=== PATIENT | female | born 1940 ===

== ENCOUNTER 2017-08-09 13:15 | Outpatient (CLI) | payer MEDICARE ==
--- NOTE | 2017-08-11 15:49 | Mammography Report ---
DIGITAL SCREENING MAMMOGRAM: 08/09/2017 COMPARISON: 11/11/2015, 11/06/2014, 10/09/2013, 10/23/2010, 09/19/2009. TECHNIQUE: Bilateral digital CC and MLO projections. FINDINGS: There are scattered fibroglandular densities. Scattered benign-appearing calcifications a re also present. There is no dominant mass, architectural distortion, skin thickening, or suspicious new microcalcifications. IMPRESSION: NEGATIVE. BIRADS CATEGORY: 1, NEGATIVE. SUGGEST RETURN TO ROUTINE SCREENING IN 12 MONTHS. STANDARD QUALIFYING STATEMENTS 1. This examination was reviewed with the aid of Computed-Aided Detection (CAD). 2. A negative or benign imaging report should not delay biopsy if clinically suspicious findings are present. Consider surgical consultation if warranted. More than 5% of cancers are not identified b y imaging. 3. Dense breasts may obscure an underlying neoplasm. JOB #: [id number] EXT JOB #:[id number]
== END 2017-08-09 13:16 | disposition home or self-care (01) ==
LOC: DI.S 13:15
PROVIDERS: ATTEND Family Medicine
DX: Z12.31 Encounter for screening mammogram for malignant neoplasm of breast (principal)
CPT/HCPCS: 77067

== ENCOUNTER 2018-01-15 10:20 | Outpatient (CLI) | payer MEDICARE ==
--- NOTE | 2018-01-16 16:05 | XRAY Report ---
EXAM: CHEST RADIOGRAPHY, 2 VIEWS EXAM DATE: 01/15/2018 10:38 AM. CLINICAL HISTORY: Right upper lung discomfort, in the region of the right breast, in a 77-year-old fe male. COMPARISON: None. TECHNIQUE: Upright PA and lateral views. FINDINGS: Lungs/Pleura: No focal opacities evident. No pleural effusion. No pneumothorax. Normal volumes. Mediastinum: Heart and mediastinal contours are unremarkable. No pulmonary vascular congestion or cole nopathy. Other: Trachea is midline. Osseous structures show no acute process. IMPRESSION: Unremarkable chest for age and body size. No CHF, pneumonia or other demonstrated cause f or right upper chest discomfort. [facility] Referring Provider Line: [phone] SITE ID: [id number]
== END 2018-01-15 10:21 | disposition home or self-care (01) ==
LOC: DI 10:20
PROVIDERS: ATTEND Internal Medicine
DX: R07.89 Other chest pain (principal); R07.81 Pleurodynia
CPT/HCPCS: 71046

== ENCOUNTER 2018-02-09 10:58 | Outpatient (CLI) | payer MEDICARE ==
--- NOTE | 2018-02-09 18:11 | XRAY Report ---
LEFT KNEE: 02/09/2018 HISTORY: Left knee pain. COMPARISON: No comparisons. FINDINGS: No evidence of fracture, malalignment, joint space narrowing, joint effusion, or other abnormality. IMPRESSION: NEGATIVE THREE VIEW LEFT KNEE. TD: 02/09/2018 16:10
== END 2018-02-09 10:59 | disposition home or self-care (01) ==
LOC: DI 10:58
PROVIDERS: ATTEND Nurse Practitioner Family
DX: M25.562 Pain in left knee (principal)

== ENCOUNTER 2018-09-28 08:01 | Outpatient (CLI) | payer MEDICARE ==
--- NOTE | 2018-09-29 08:49 | Mammography Report ---
Reason: ROUTINE MAMMO Procedure Date: 09/28/2018 Accession Number: [id number] / [id number] Procedure: [facility] - Screening Mammo w/Damion CPT Code: FULL RESULT: EXAM: Screening Mammo w/Damion DATE: 09/28/2018 8:33 AM CLINICAL HISTORY: Screening encounter. No reported risk factors. TECHNIQUE: Bilateral CC and MLO views were obtained. COMPARISON: 08/09/2017 through 10/09/2013. FINDINGS: The breasts demonstrate scattered fibroglandular densities bilaterally. There are typically benign vascular calcifications. No suspicious masses, clustered microcalcifications, or regions of architectural distortion are identified. IMPRESSION: Benign findings RECOMMENDATION: Routine annual screening unless otherwise clinically indicated. BIRADS CATEGORY 2: Benign findings STANDARD QUALIFYING STATEMENTS: 1. This examination was not reviewed with the aid of Computer-Aided Detection (CAD). 2. A negative or benign imaging report should not preclude biopsy if clinically suspicious findings are present. 3. Dense breasts may obscure an underlying neoplasm. 4. This examination was reviewed with the aid of 3D breast imaging (tomosynthesis).
== END 2018-09-28 08:02 | disposition home or self-care (01) ==
LOC: DI 08:01
DX: Z12.31 Encounter for screening mammogram for malignant neoplasm of breast (principal)
CPT/HCPCS: 77063; 77067

== ENCOUNTER 2020-06-17 13:29 | Outpatient (CLI) | payer MEDICARE ==
--- NOTE | 2020-06-17 17:21 | Ultrasound Report ---
PROCEDURE: Pelvic w/Transvaginal INDICATIONS: POSTMENOPAUSAL BLEEDING TECHNIQUE: Real-time scanning was performed of the pelvic organs, with image documentation. Additional endovagi nal scanning was necessary due to incomplete visualization of the adnexal and endometrial structures by transabdominal scanning. COMPARISON: None. FINDINGS: Transabdominal scanning: Limited scanning through the kidneys shows no hydronephrosis. Simple bilat eral renal cysts are present measuring up to 4.7 cm in right kidney and 3.6 cm and the left kidney. N o pathologic free abdominal or pelvic fluid. Endovaginal scanning: Uterus: Uterus is anteverted and normal in size for age at 4.9 x 1.4 x 3.1 cm. Periuterine calcific ations, likely degenerative. The endometrium measures 2 mm in combined thickness. Trace simple endom etrial fluid. Ovaries: Right adnexal structure believed to be an atrophic right ovary measures 0.7 x 0.3 x 0.7 cm. Left ovary was not identified. No suspicious adnexal masses. IMPRESSION: 1. Diminutive, age-appropriate uterus with thin endometrium consistent with endometrial atrophy. Reviewed by: Raquel Elizabeth MD on 06/17/2020 5:20 PM PDT Approved by: Raquel Elizabeth MD on 06/17/2020 5:20 PM PDT Station ID: [id number]
== END 2020-06-17 13:30 | disposition home or self-care (01) ==
LOC: DI 13:29
PROVIDERS: ATTEND Nurse Practitioner Family
DX: N85.8 Other specified noninflammatory disorders of uterus (principal)
CPT/HCPCS: 76830; 76856

== ENCOUNTER 2021-09-25 10:28 | Outpatient (CLI) | payer MEDICARE ==
--- NOTE | 2021-09-25 15:38 | DEXA Report ---
PROCEDURE: Dexa Spine and/or Hip INDICATIONS: ASYMPTOMATIC MENOPAUSAL STATE TECHNIQUE: Dual energy x-ray absorptiometry (DXA) was performed on a ViVu System. Regions measur ed are the AP Spine, femoral neck, and if needed forearm. COMPARISON: None. FINDINGS: Lumbar Spine: Bone Mineral Density 0.819 g/cm/cm,T score -3.0. Left Hip: Bone Mineral Density 0.663 g/cm/cm,T score -2.7. Left Femoral Neck: Bone Mineral Density 0.664 g/cm/cm, T score -2.7. (T score greater or equal to -1.0: NORMAL) (T score from -1.1 to -2.4: OSTEOPENIA) (T score less than or equal to -2.5 to: OSTEOPOROSIS) Impression: Based on WHO criteria, the patient is osteoporotic. Patients with diagnosis of osteoporosis or osteopenia should have regular bone mineral density assess ment. For those eligible for Medicare, routine testing is allowed once every 2 years. Testing frequ ency can be increased for patients who have rapidly progressing disease or for those who are receivin g medical therapy to restore bone mass. Reviewed by: Torie Sidhu MD on 09/25/2021 3:37 PM PST Approved by: Torie Sidhu MD on 09/25/2021 3:37 PM PST Station ID: [id number]
== END 2021-09-25 10:29 | disposition home or self-care (01) ==
LOC: DI 10:28
PROVIDERS: ATTEND Nurse Practitioner Family
DX: M81.0 Age-related osteoporosis without current pathological fracture (principal); Z78.0 Asymptomatic menopausal state

== ENCOUNTER 2021-10-22 08:22 | Day surgery (SDC) | payer MEDICARE ==
[~2021-10-22 08:22] MED LIST: IOVERSOL 320 100 ML VIAL IVP ONE
[2021-10-22] MEDS ORDERED: LACTATED RINGERS 1,000 ML IV ONE ×2 (08:49→12:54)
--- NOTE | 2021-10-22 09:14 | ANESTHESIA ---
Pre-Anesthesia VS, & Labs - Diagnosis screening - Procedure colonoscopy Vital Signs: Temp Pulse Resp BP Pulse Ox 36.8 C 81 16 150/76 H 98 10/22/21 08:43 10/22/21 08:43 10/22/21 08:43 10/22/21 08:43 10/22/21 08:43 Height: 5 ft 2.5 in Weight (kg): 64.1 kg Body Mass Index: 25.4 BMI Classification: Overweight - NPO >8 hours - Is Patient ?: No - Lab Results Lab results reviewed: Yes Home Medications and Allergies Home Medications: Ambulatory Orders amLODIPine [Norvasc] 5 mg PO DAILY 10/21/21 amLODIPine [Norvasc] 5 mg PO DAILY 10/21/21 Allergies/Adverse Reactions: Allergies Allergy/AdvReac Type Severity Reaction Status Date / Time No Known Drug Allergies Allergy Verified 11/02/13 14:45 Anes History & Medical History - Anesthetic History Anesthesia Complications: reports: No previous complications Family history of Anesthesia Complications: Denies Family history of Malignant Hyperthermia: Denies - Medical History Cardiovascular: reports: Hypertension Pulmonary: reports: None Gastrointestinal: reports: None, Colon polyps Urinary: reports: None Musculoskeletal: reports: Osteopenia Endocrine/Autoimmune: reports: None Skin: reports: None - Surgical History General: reports: Cholecystectomy, Appendectomy Exam General: Alert, Oriented x3, Cooperative, No acute distress Dental: WNL Mouth Openin Fingerbreadth Neck Mobility: Normal Mallampati classification: II Plan Anesthesia Type: General, Total IV Consent for Procedure(s) Verified and Reviewed: Yes Code Status: Attempt Resuscitation ASA classification: 2-Mild systemic disease Is this case an emergency?: No
[2021-10-22] MEDS ORDERED: PROPOFOL 500 MG/50 ML 500 MG/50 ML VIAL ONE (11:23)
[2021-10-22 13:41] VITALS: BP 106/71
--- NOTE | 2021-10-22 14:44 | ANESTHESIA POST OP EVALUATION ---
Anesthesia Post Eval - Post Anesthesia Eval Vitals: Last Vital Signs Temp 36.5 C 10/22/21 13:15 Pulse 68 10/22/21 13:15 Resp 16 10/22/21 13:15 BP 106/71 10/22/21 13:15 Pulse Ox 99 10/22/21 13:15 CV Function Including HR & BP: Stable Pain Control: Satisfactory Nausea & Vomiting: Negative Mental Status: Baseline Respiratory Status: Airway Patent Hydration Status: Satisfactory Anesthesia Complications: None
== END 2021-10-22 08:23 | disposition home or self-care (01) ==
LOC: SDS 08:22
PROVIDERS: ATTEND Surgery
PROC: 0DBN8ZX Excision of Sigmoid Colon, Via Natural or Artificial Opening Endoscopic, Diagnostic (ICD-10-PCS; 2021-10-22)
PROC: 0DBP8ZX Excision of Rectum, Via Natural or Artificial Opening Endoscopic, Diagnostic (ICD-10-PCS; principal; 2021-10-22 10:45)
DX: R19.5 Other fecal abnormalities (principal); D12.5 Benign neoplasm of sigmoid colon; K62.0 Anal polyp; K64.8 Other hemorrhoids; Z87.891 Personal history of nicotine dependence
CPT/HCPCS: 45380; J7120; Q9967

== ENCOUNTER 2023-03-13 09:45 | Outpatient (CLI) | payer MEDICARE ==
--- NOTE | 2023-03-13 20:09 | XRAY Report ---
PROCEDURE: Finger(s) LT INDICATIONS: LEFT INDEX FINGER INJURY TECHNIQUE: AP hand, 2 views of the index finger(s) acquired. COMPARISON: None. FINDINGS: Bones: No fractures or dislocations. No suspicious bony lesions. Degenerative changes of the DIP mona ints of the fourth and fifth fingers with subchondral erosions. Soft tissues: No suspicious soft tissue calcifications or masses. IMPRESSION: 1. No acute abnormality of the index finger. 2. 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 Reviewed by: Matt Melara on 03/13/2023 7:07 PM HENNA Approved by: Matt Melara on 03/13/2023 7:07 PM HENNA Station ID: [id number]
== END 2023-03-13 23:59 | disposition home or self-care (01) ==
LOC: DI.S 09:45
PROVIDERS: ATTEND Physician Assistant
DX: M19.042 Primary osteoarthritis, left hand (principal); S67.191A Crushing injury of left index finger, initial encounter